=== PATIENT | female | born 1975 | race Caucasian/White ===

== ENCOUNTER 2020-01-05 10:55 | Day surgery (SDC) | payer SELFPAY ==
[2020-01-05] MEDS ORDERED: Ropivacaine 0.5% 5 MG/ML 30 ML SDV INJECT ONE (13:00)
[2020-01-05] MEDS ORDERED: Betamethasone Acetate/Betamethasone Sod Phosphate 30 MG/5 ML MDV EPIDUR ONE (13:00)
[2020-01-05] MEDS ORDERED: Lidocaine 2% 5 ML SDV INJECT ONE (13:00)
[2020-01-05] MEDS ORDERED: Iopamidol 200-M 10 ML vial ITHECAL ONE (13:00)
--- NOTE | 2020-01-05 17:43 | OR ---
SURGEON: Amanda Hinojosa D.O. DATE OF PROCEDURE: 01/05/2020 PRIMARY SURGEON: Amanda Hinojosa DO ASSISTANTS: OR staff present: 1. Renny Wang RT. 2. Lavonne Dudley RN. 3. Renny Mondragon RN. WOUND CLASS: I. PREOPERATIVE DIAGNOSES: 1. Failed back surgery syndrome. 2. Right lower extremity radiculopathy. POSTOPERATIVE DIAGNOSES: 1. Failed back surgery syndrome. 2. Right lower extremity radiculopathy. PROCEDURES PERFORMED: 1. Right transforaminal epidural steroid injection at S1. 2. Fluoroscopic guidance for needle placement. 3. Local with oral Valium for sedation. SCREENING QUESTIONS: The patient answered "no" to all of the following questions: 1. Are you allergic to iodine, Betadine or latex? 2. Do you have a bleeding disorder? 3. Do you have any joint replacements, heart valve replacements, or a pacemaker? 4. Are you allergic to anti-inflammatories or blood thinners? 5. Do you have any current local or systemic infections? DESCRIPTION OF PROCEDURE: The patient had the procedure thoroughly explained including risks, benefits and alternatives. Consent was signed in my clinic indicating understanding and willingness to proceed. The patient presented to [facility] [place] where the patient was escorted to the dressing room to disrobe and change into a hospital gown. Preoperative vital signs were taken and stable. The patient reported that Valium was taken prior to the procedure. The patient was brought to the procedure room and placed in the prone position on the table. A pillow was placed under the abdomen in order to flatten the lumbar lordosis. The back was prepped with ChloraPrep and sterilely draped. All personnel in the operating room were dressed in appropriate attire including surgical scrubs, head and shoe covers. This was to ensure sterility while in the treatment room. During the time fluoroscopy was in use, all personnel in the operating room wore lead vegas with thyroid collars. Sterile technique was used during the procedure. The fluoroscope was placed for the right S1 transforaminal epidural steroid injection. There was no sign of infection at the skin site for needle insertion. The skin was anesthetized with 2% lidocaine with a 27 gauge 1-1/2 inch needle. Then, a 22 gauge 3-1/2 inch spinal needle, advanced to the right S1. Under direct fluoroscopic guidance needle position was verified in three views; AP, oblique and lateral, with 0.2 cubic centimeters increments of Isovue- 200 dye. No intravascular flow pattern was observed under live fluoroscopy. Then 12 milligrams of Celestone was slowly injected after negative aspiration of heme, cerebrospinal fluid and no paresthesias were noted. The needle was cleared prior to removal from the skin. No adverse reactions were noted. The patient was brought to the recovery room awake and in good condition by my staff. The patient was monitored and discharge instructions were given after a brief stay in the recovery area. Both oral and written discharge and follow up instructions were given. The patient will follow up in the clinic in 3-4 weeks post procedure to evaluate the efficacy. The patient verbalized understanding including understanding of those signs and symptoms that would require emergency care and knows how to contact the office if there are any problems or questions in the meantime. PREOPERATIVE PAIN: 9/10. POSTOPERATIVE PAIN: 4/10. FOLLOWUP: In the Pain Clinic in 3 weeks. CHEMA / MAYANK /[id number] MTDDann
== END 2020-01-05 13:40 | disposition home or self-care (01) ==
LOC: MW.SDS 10:55
PROVIDERS: ATTEND Anesthesiology
DX: M96.1 Postlaminectomy syndrome, not elsewhere classified (principal); G89.29 Other chronic pain; F41.9 Anxiety disorder, unspecified; M51.16 Intervertebral disc disorders with radiculopathy, lumbar region; M47.26 Other spondylosis with radiculopathy, lumbar region; M79.18 Myalgia, other site; Z88.1 Allergy status to other antibiotic agents; Z88.8 Allergy status to other drugs, medicaments and biological substances; Z79.899 Other long term (current) drug therapy
CPT/HCPCS: 64483; J0702

== ENCOUNTER 2020-05-17 17:04 | Emergency (ER) | payer OTHER ==
--- NOTE | 2020-05-17 18:04 | EDM.PDOC ---
ED HPI GENERAL MEDICAL PROBLEM - General Chief Complaint: General Stated Complaint: BACK PAIN Time Seen by Provider: 05/17/20 17:04 Source of Information: Reports: Patient History Limitations: Reports: No Limitations - History of Present Illness INITIAL COMMENTS - FREE TEXT/NARRATIVE: HISTORY AND PHYSICAL: History of present illness: Is a 45-year-old female who presents to the emergency room today with concern of low back and right hip pain that has been ongoing for 2 weeks. Patient states she has a history of prior bulging disc and her symptoms today feel similar to when she had a bulging disc in the past. Patient states that she did have surgery on her bulging disc in the past. Patient states that she has been having back pain off and on since then. Patient states 2 weeks ago she began feeling the back pain come on again and so she has been going to the chiropractor routinely getting her hip popped back into place. Patient denies any direct trauma or injury to her low back. Patient states she is currently trying to get and is a few days late on her menstrual cycle. Patient denies any vaginal bleeding. Patient denies any loss or retention of bowel bladder function or saddle anesthesia. Patient denies fever, chills, chest pain, shortness of breath, or cough. Denies headache, neck stiff ness, change in vision, syncope, or near syncope. Denies nausea, vomiting, abdominal pain, diarrhea, constipation, or dysuria. Has not noted any blood in urine or stool. Patient has been eating and drinking appropriately. Review of systems: As per history of present illness and below otherwise all systems reviewed and negative. Past medical history: As per history of present illness and as reviewed below otherwise noncontributory. Surgical history: As per history of present illness and as reviewed below otherwise noncontributory. Social history: See social history for further information Family history: As per history of present illness and as reviewed below otherwise noncontributory. Physical exam: General: Patient is alert, oriented, and in no acute distress. Patient laying comfortably on exam table, on her left. Patient does have pain with laying flat on her back. Patient did have pain with ambulation and did require some assistance. HEENT: Atraumatic, normocephalic, pupils equal and reactive bilaterally, negative for conjunctival pallor or scleral icterus, mucous membranes moist, TMs normal bilaterally, throat clear, neck supple, nontender, trachea midline. No drooling or trismus noted. No meningeal signs. No hot potato voice noted. Lungs: Clear to auscultation, breath sounds equal bilaterally, chest nontender. Heart: S1S2, regular rate and rhythm without overt murmur Abdomen: Soft, nondistended, nontender. Negative for masses or hepatosplenomegaly. Negative for costovertebral tenderness. Pelvis: Stable nontender. Genitourinary: Deferred. Rectal: Deferred. Skin: Intact, warm, dry. No lesions or rashes noted. Extremities: No obvious deformity of the complete spine. No step-offs, crepitus, or point tenderness to palpation of the complete spine. Patient does have pain of the right sided paraspinous muscle of the lumbar spine and over the SI joint of the right. Patient has limited range of motion of the lumbar spine due to pain. Patient does have full ROM of her lower extremities without deficit. Patellar reflexes intact bilaterally. Otherwise, atraumatic, negative for cords or calf pain. Neurovascular unremarkable. Neuro: Awake, alert, oriented. Cranial nerves II through XII unremarkable. Cerebellum unremarkable. Motor and sensory unremarkable throughout. Exam nonfocal. Notes: Lumbar CT was offered to patient but she declines at this time. Patient states that she understands she requires an MRI for full assessment of her low back, as she has had surgery on her spine before. Patient states she will forego the lumbar CT and follow-up with her primary care. Patient states she would like m edication management of her pain and declines any other diagnostic testing. Patient does not want to wait for reassessment of symptoms following therapeutics requesting discharge from the ED. Vitals remain stable throughout stay in ED. Patient was able to ambulate without difficulty on discharge from the ED. Signs and symptoms that would prompt return to the ED thoroughly discussed with patient. Discussed importance for follow-up with primary care provider. Voices understanding and is agreeable to plan of care. Denies any further questions or concerns at this time. Diagnostics: serum hcg quant/qual (Patient declines imaging of her low back/hip or UA) Therapeutics: Toradol, Norflex Prescription: Medrol dose pack, Diclofenac, Tramadol (#12) Impression: Low back pain Plan: 1. The medication you received today does cause drowsiness, so do not drive for the remaining day. 2. When resting please lay on a flat firm surface. Limit your mobility to prevent muscle stiffness. Get up to ambulate/move around/gentle stretching multiple times throughout the day. May alternate heat and ice to painful areas. 3. Tylenol as needed for back pain. Otherwise, take the prescribed tramadol and diclofenac as directed. Diclofenac as an anti-inflammatory medication so do not take any additional NSAIDs with this medication, such as naproxen, ibuprofen, or Aleve. Tramadol, this medication may cause drowsiness, so do not take it while driving or needing to be functioning outside of the home. 4. Follow-up with your primary care provider as discussed. Return to the ED as needed and as discussed. Definitive disposition and diagnosis as appropriate pending reevaluation and review of above. back Pain Score (Numeric/FACES): 10 - Related Data Allergies Allergy/AdvReac Type Severity Reaction Status Date / Time azithromycin Allergy Hives Verified 05/17/20 17:22 divalproex sodium Allergy Hives Verified 05/17/20 17:22 [From Depakote] Home Meds: Home Meds Diclofenac Sodium [Voltaren] 75 mg PO BIDMEALS PRN #15 tab.cr 05/17/20 [Rx] methylPREDNISolone [Medrol] 4 mg PO ASDIRECTED #1 dosepk 05/17/20 [Rx] traMADol [Ultram] 50 mg PO Q6H PRN #12 tab 05/17/20 [Rx] Past Medical History Musculoskeletal History: Reports: Back Pain, Chronic Psychiatric History: Reports: Anxiety, PTSD - Infectious Disease History Infectious Disease History: Reports: Chicken Pox, Measles Social & Family History - Family History Family Medical History: No Pertinent Family History - Recreational Drug Use Recreational Drug Type: Reports: Marijuana/Hashish ED ROS GENERAL - Review of Systems Review Of Systems: Comprehensive ROS is negative, except as noted in HPI. ED EXAM, GENERAL - Physical Exam Exam: See Below (see dictation) Course - Vital Signs Last Recorded V/S: Last Vital Signs Temp 96 F L 05/17/20 17:19 Pulse 87 05/17/20 17:19 Resp 20 05/17/20 17:19 BP 122/60 05/17/20 17:19 Pulse Ox 100 05/17/20 17:19 - Orders/Labs/Meds Labs: Laboratory Tests 05/17/20 05/17/20 Range/Units 17:52 17:52 HCG, Qual NEGATIVE (NEG) HCG, Quant < 1.0 mIU/mL Meds: Medications Discontinued Medications Generic Name Dose Route Start Last Admin Trade Name Evangelista PRN Reason Stop Dose Admin Ketorolac Tromethamine 60 mg 05/17/20 18:37 05/17/20 18:43 Toradol IM 05/17/20 18:38 60 mg ONETIME ONE Administration Orphenadrine Citrate 60 mg 05/17/20 18:37 05/17/20 18:43 Norflex IM 05/17/20 18:38 60 mg ONETIME ONE Administration Departure - Departure Time of Disposition: 18:38 Disposition: Home, Self-Care 01 Clinical Impression: Low back pain Qualifiers: Chronicity: acute Back pain laterality: unspecified Sciatica presence: with sciatica Sciatica laterality: sciatica of right side Qualified Code(s): M54.41 - Lumbago with sciatica, right side - Discharge Information Prescriptions: methylPREDNISolone [Medrol] 4 mg PO ASDIRECTED #1 dosepk traMADol [Ultram] 50 mg PO Q6H PRN #12 tab PRN Reason: Pain (Severe 7-10) Diclofenac Sodium [Voltaren] 75 mg PO BIDMEALS PRN #15 tab.cr PRN Reason: Pain Referrals: Mich Corley MD [Primary Care Provider] - Forms: ED Department Discharge Additional Instructions: The following information is given to patients seen in the emergency department who are being discharged to home. This information is to outline your options for follow-up care. We provide all patients seen in our emergency department with a follow-up referral. The need for follow-up, as well as the timing and circumstances, are variable depending upon the specifics of your emergency department visit. If you don't have a primary care physician on staff, we will provide you with a referral. We always advise you to contact your personal physician following an emergency department visit to inform them of the circumstance of the visit and for follow-up with them and/or the need for any referrals to a consulting specialist. The emergency department will also refer you to a specialist when appropriate. This referral assures that you have the opportunity for follow-up care with a specialist. All of these measure are taken in an effort to provide you with optimal care, which includes your follow-up. Under all circumstances we always encourage you to contact your private physician who remains a resource for coordinating your care. When calling for follow-up care, please make the office aware that this follow-up is from your recent emergency room visit. If for any reason you are refused follow-up, please contact the [facility] at and asked to speak to the emergency department charge nurse. [facility] [address] [place] [id number] [facility] [address] [place] [id number] 1. The medication you received today does cause drowsiness, so do not drive for the remaining day. 2. When resting please lay on a flat firm surface. Limit your mobility to prevent muscle stiffness. Get up to ambulate/move around/gentle stretching multiple times throughout the day. May alternate heat and ice to painful areas. 3. Tylenol as needed for back pain. Otherwise, take the prescribed tramadol and diclofenac as directed. Diclofenac as an anti-inflammatory medication so do not take any additional NSAIDs with this medication, such as naproxen, ibuprofen, or Aleve. Tramadol, this medication may cause drowsiness, so do not take it while driving or needing to be functioning outside of the home. 4. Follow-up with your primary care provider as discussed. Return to the ED as needed and as discussed. Sepsis Event Note (ED) - Evaluation Sepsis Screening Result: No Definite Risk - Focused Exam Vital Signs: Vital Signs Temp Pulse Resp BP Pulse Ox 05/17/20 17:19 96 F L 87 20 122/60 100
[2020-05-17] MEDS ORDERED: Orphenadrine 60 MG/2 ML Inj IM ONE (18:37)
[2020-05-17] MEDS ORDERED: Ketorolac 60 MG/2 ML SDV IM ONE (18:37)
== END 2020-05-17 19:35 | disposition home or self-care (01) ==
LOC: MW.ED 17:04
DX: M54.41 Lumbago with sciatica, right side (principal); M25.551 Pain in right hip; Z88.1 Allergy status to other antibiotic agents; Z88.8 Allergy status to other drugs, medicaments and biological substances
CPT/HCPCS: 36415; 84702; 84703; 96372; 99283; J1885; J2360

== ENCOUNTER 2020-06-28 10:57 | Day surgery (SDC) | payer OTHER ==
--- NOTE | 2020-07-20 09:40 | OR ---
SURGEON: Amanda Hinojosa D.O. DATE OF PROCEDURE: 06/28/2020 PRIMARY SURGEON: Amanda Hinojosa D.O. STOCK SPECULATOR: OR staff present: 1. Anabelle Garcia RN. 2. Lavonne Dudley RN. 3. Donn Garcia RT. WOUND CLASS: I. PREOPERATIVE DIAGNOSES: Lumbar degenerative disk disease, L5-S1; right L5-S1 radiculopathy. POSTOPERATIVE DIAGNOSES: Lumbar degenerative disk disease, L5-S1; right L5-S1 radiculopathy. PROCEDURE PERFORMED: Right S1 transforaminal epidural steroid injection, fluoroscopic guidance for needle placement, local with oral Valium for sedation. PREOPERATIVE PAIN: 5+/10. POSTOPERATIVE PAIN: 0/10. FOLLOWUP: In the Pain Clinic in 3 weeks. SCREENING QUESTIONS: The patient answered "no" to all of the following questions: 1. Are you allergic to iodine, Betadine or latex? 2. Do you have a bleeding disorder? 3. Do you have any joint replacements, heart valve replacements, or a pacemaker? 4. Are you allergic to anti-inflammatories or blood thinners? 5. Do you have any current local or systemic infections? DESCRIPTION OF PROCEDURE: The patient had the procedure thoroughly explained including risks, benefits and alternatives. Consent was signed in my clinic indicating understanding and willingness to proceed. The patient presented to [facility] [place] where the patient was escorted to the dressing room to disrobe and change into a hospital gown. Preoperative vital signs were taken and stable. The patient reported that Valium was taken prior to the procedure. The patient was brought to the procedure room and placed in the prone position on the table. A pillow was placed under the abdomen in order to flatten the lumbar lordosis. The back was prepped with ChloraPrep and sterilely draped. All personnel in the operating room were dressed in appropriate attire including surgical scrubs, head and shoe covers. This was to ensure sterility while in the treatment room. During the time fluoroscopy was in use, all personnel in the operating room wore lead vegas with thyroid collars. Sterile technique was used during the procedure. The fluoroscope was placed for the right S1 transforaminal epidural steroid injection. There was no sign of infection at the skin site for needle insertion. The skin was anesthetized with 2% lidocaine with a 27 gauge 1-1/2 inch needle. Then, a 22 gauge 3-1/2 inch spinal needle, advanced to the right S1. Under direct fluoroscopic guidance needle position was verified in three views; AP, oblique and lateral, with 0.2 cubic centimeters increments of Isovue- 200 dye. No intravascular flow pattern was observed under live fluoroscopy. Then 12 milligrams of Celestone and local was slowly injected after negative aspiration of heme, cerebrospinal fluid and no paresthesias were noted. The needle was cleared prior to removal from the skin. No adverse reactions were noted. The patient was brought to the recovery room awake and in good condition by my staff. The patient was monitored and discharge instructions were given after a brief stay in the recovery area. Both oral and written discharge and follow up instructions were given. The patient will follow up in the clinic in 3-4 weeks post procedure to evaluate the efficacy. The patient verbalized understanding including understanding of those signs and symptoms that would require emergency care and knows how to contact the office if there are any problems or questions in the meantime. CHEMA / MAYANK /[id number] PADDY
== END 2020-06-28 13:22 ==
LOC: MW.SDS 10:57
PROVIDERS: ATTEND Anesthesiology
DX: G89.29 Other chronic pain (principal); M51.17 Intervertebral disc disorders with radiculopathy, lumbosacral region; M47.26 Other spondylosis with radiculopathy, lumbar region; M48.02 Spinal stenosis, cervical region; M50.121 Cervical disc disorder at C4-C5 level with radiculopathy; M96.1 Postlaminectomy syndrome, not elsewhere classified; Z88.1 Allergy status to other antibiotic agents; Z88.8 Allergy status to other drugs, medicaments and biological substances; Z98.890 Other specified postprocedural states

== ENCOUNTER 2020-09-06 16:34 | Emergency (ER) | payer OTHER ==
[2020-09-06] MEDS ORDERED: Ibuprofen 600 MG Tab PO ONE (16:51)
[2020-09-06] MEDS ORDERED: Diphtheria,Pertussis(Acell),Tetanus Vaccine 0.5 ML Syringe IM ONE (16:51)
--- NOTE | 2020-09-06 17:31 | EDM.PDOC ---
ED HPI GENERAL MEDICAL PROBLEM - General Chief Complaint: Skin Complaint Stated Complaint: RT DOMINGUEZ LACERATION Time Seen by Provider: 09/06/20 16:47 - History of Present Illness INITIAL COMMENTS - FREE TEXT/NARRATIVE: HISTORY AND PHYSICAL: History of present illness: This is a 45-year-old female with no significant past medical history who presents ER today secondary to a laceration to her left anterior tibial region. Patient reports that she was walking her mother's dog when she got tripped up and fell and hit her anterior tibial region on a brick step resulting in a laceration. Patient's tetanus status is not up-to-date. Patient denies any other trauma to her upper or lower extremities other than the isolated injury to her left leg. Patient denies any head trauma, LOC, dizziness. Patient reports she is not on any anticoagulation therapy. Review of systems: As per history of present illness and below otherwise all systems reviewed and negative. Past medical history: As per history of present illness and as reviewed below otherwise noncontributory. Surgical history: As per history of present illness and as reviewed below otherwise noncontributory. Social history: No reported history of drug abuse. Family history: As per history of present illness and as reviewed below otherwise noncontributory. Physical exam: This patient was seen and evaluated during the 2019 SARS-CoV-2 novel coronavirus pandemic period. Community viral transmission is ongoing at time of this encounter and the emergency department is operating under pandemic response procedures. Constitutional: Patient is oriented to person, place, and time. Appears well- developed and well-nourished. No distress. HEENT: Moist mucous membranes Head: Normocephalic and atraumatic Eyes: Right eye exhibits no discharge. Left eye exhibits no discharge. No scleral icterus Neck: Normal range of motion. No tracheal deviation present. Cardiovascular: Normal rate and regular rhythm. Pulmonary: Effort normal, no respiratory distress. Abdominal: No distention Musculoskeletal: Normal range of motion Neurologic: Alert and oriented to person, place and time. Skin: [place], warm and dry. Psychiatric: Normal mood and affect. Behavior is normal. Judgment and thought content normal. Nursing note and vital signs have been reviewed Patient's ER physical exam is significant for a 3 cm laceration to her left pretibial region. Patient is neurovascularly intact. Patient has no C-spine T-spine or L-spine tenderness to palpation. Patient has no left upper or right upper quadrant tenderness to palpation. Patient has no c repitus to palpation to the anterior chest wall. Patient is neurologically intact. Patient does not present with any signs or or symptoms that would be consistent with acute intracranial, intra-abdominal, intrathoracic, or long bone injury. All long bones have been palpated and range of motion been performed and there is no evidence of any acute pathology. Diagnostics: X-ray of tib-fib reveals no acute fracture or foreign body. As interpreted by Dr. [employer]: Wound sutured in the ED. Please see suture note Td 0.5 IM Motrin 600 mg p.o. Assessment and plan: This is a 45-year-old female who presents ER today secondary to a laceration to her left anterior tibial region. Wound was irrigated with 1 L of NSS after anesthetized with 3 cc of 1% lidocaine. 5x4.0 simple interrupted Ethilon sutures were placed without complications. I have instructed patient that she will need a wound check in 2 days and she can have sutures removed in 10 days. No antibiotics indicated at this time. Reassessment at the time of disposition demonstrates that the patient is in no acute distress. The patient has remained stable throughout the entire ED visit and is without objective evidence for acute process requiring urgent intervention or hospitalization. The patient is stable for discharge, counseling is provided as documented above, discussed symptomatic treatment and specific c onditions for return. I have spoken with the patient/caregiver and discussed todays findings, in addition to providing specific details for the plan of care. Questions are answered and there is agreement with the plan. Definitive disposition and diagnosis as appropriate pending reevaluation and review of above. right dominguez Pain Score (Numeric/FACES): 5 - Related Data Allergies Allergy/AdvReac Type Severity Reaction Status Date / Time azithromycin Allergy Hives Verified 09/06/20 16:46 divalproex sodium Allergy Hives Verified 09/06/20 16:46 [From Depakote] methocarbamol [From Robaxin] Allergy Fainting Verified 09/06/20 16:46 Home Meds: Home Meds DULoxetine [Cymbalta] 09/06/20 [History] Diclofenac Submicronized [Diclofenac] 09/06/20 [History] Naltrexone 09/06/20 [History] Pregabalin [Lyrica] 09/06/20 [History] Past Medical History Musculoskeletal History: Reports: Back Pain, Chronic Psychiatric History: Reports: Anxiety, PTSD - Infectious Disease History Infectious Disease History: Reports: Chicken Pox, Measles - Past Surgical History Musculoskeletal Surgical History: Reports: Other (See Below) Other Musculoskeletal Surgeries/Procedures:: back surgery Social & Family History - Family History Family Medical History: No Pertinent Family History - Tobacco Use Tobacco Use Status *Q: Current Every Day Tobacco User Years of Tobacco use: 5 Packs/Tins Daily: 1 - Recreational Drug Use Recreational Drug Use: No ED ROS GENERAL - Review of Systems Review Of Systems: See Below ED EXAM, SKIN/RASH Exam: See Below Course - Vital Signs Last Recorded V/S: Last Vital Signs Temp 97.8 F 09/06/20 16:50 Pulse 86 09/06/20 16:50 Resp 18 09/06/20 16:50 BP 126/77 09/06/20 16:50 Pulse Ox 99 09/06/20 16:50 - Orders/Labs/Meds Orders: Active Orders 24 hr Category Date Time Status Vaccines to be Administered [RC] PER UNIT ROUTINE Care 09/06/20 16:51 Active Tibia Fibula Rt [CR] Stat Exams 09/06/20 16:51 Taken Meds: Medications Discontinued Medications Generic Name Dose Route Start Last Admin Trade Name Freq PRN Reason Stop Dose Admin Diphtheria/Tetanus/Acell Pertussis 0.5 ml 09/06/20 16:51 09/06/20 17:03 Diphtheria,Pertussis(Acell),Tetanus Vaccine 0.5 Ml Syringe IM 09/06/20 16:52 0.5 ml .ONCE ONE Administration Ibuprofen 600 mg 09/06/20 16:51 09/06/20 17:02 Ibuprofen 600 Mg Tab PO 09/06/20 16:52 600 mg ONETIME ONE Administration Lidocaine HCl 5 ml 09/06/20 16:51 09/06/20 17:03 Lidocaine 1% 5 Ml Sdv INJECT 09/06/20 16:52 5 ml ONETIME ONE Administration Departure - Departure Time of Disposition: 17:38 Disposition: Home, Self-Care 01 Condition: Good Clinical Impression: Laceration of leg Qualifiers: Encounter type: initial encounter Laterality: left Qualified Code(s): S81.812A - Laceration without foreign body, left lower leg, initial encounter - Discharge Information Instructions: Laceration Care, Adult Referrals: Mich Corley MD [Primary Care Provider] - Additional Instructions: You were seen and evaluated the ER today secondary to a laceration to your leg. 5 sutures have been placed. You will need a wound check in 2 days by your doctor to make sure there is no signs of any infection. Sutures can be removed in 10 days. Please keep the wound clean and dry. You can wash it with mild soap and water. The following information is given to patients seen in the emergency department who are being discharged to home. This information is to outline your options for follow-up care. We provide all patients seen in our emergency department with a follow-up referral. The need for follow-up, as well as the timing and circumstances, are variable depending upon the specifics of your emergency department visit. If you don't have a primary care physician on staff, we will provide you with a referral. We always advise you to contact your personal physician following an emergency department visit to inform them of the circumstance of the visit and for follow-up with them and/or the need for any referrals to a consulting specialist. The emergency department will also refer you to a specialist when appropriate. This referral assures that you have the opportunity for follow-up care with a specialist. All of these measure are taken in an effort to provide you with optimal care, which includes your follow-up. Under all circumstances we always encourage you to contact your private physician who remains a resource for coordinating your care. When calling for follow-up care, please make the office aware that this follow-up is from your recent emergency room visit. If for any reason you are refused follow-up, please contact the [facility] Emergency Department at and asked to speak to the emergency department charge nurse. [facility] - Primary Care [address] [place] [id number] [address] Sepsis Event Note (ED) - Evaluation Sepsis Screening Result: No Definite Risk - Focused Exam Vital Signs: Vital Signs Temp Pulse Resp BP Pulse Ox 09/06/20 16:50 97.8 F 86 18 126/77 99 - My Orders Last 24 Hours: My Active Orders 09/06/20 16:51 Vaccines to be Administered [RC] PER UNIT ROUTINE Tibia Fibula Rt [CR] Stat - Assessment/Plan Last 24 Hours: My Active Orders 09/06/20 16:51 Vaccines to be Administered [RC] PER UNIT ROUTINE Tibia Fibula Rt [CR] Stat
[2020-09-06] MEDS ORDERED: Bacitracin Oint 1 GM U/D Packet TOP ONE (17:43)
--- NOTE | 2020-09-06 18:31 | CR ---
Indication: Trauma to the distal tibia. Technique: Two views of the right lower leg. Comparison: None Findings: No acute fracture or subluxation is identified. The joint spaces are well maintained. Impression: No acute fracture. Dictated by Taylor Beckham MD @ 09/06/2020 6:29:[address] Taylor Beckham @ Sep 06 2020 6:29PM
== END 2020-09-06 17:52 | disposition home or self-care (01) ==
LOC: MW.ED 16:34
DX: S81.812A Laceration without foreign body, left lower leg, initial encounter (principal); Z23 Encounter for immunization; Z72.0 Tobacco use; Z88.1 Allergy status to other antibiotic agents; Z88.5 Allergy status to narcotic agent; W18.09XA Striking against other object with subsequent fall, initial encounter; W26.8XXA Contact with other sharp object(s), not elsewhere classified, initial encounter
CPT/HCPCS: 12002; 73590; 90471; 90715; 99283; A9270

== ENCOUNTER 2020-09-14 14:15 | Emergency (ER) | payer OTHER ==
[2020-09-14] MEDS ORDERED: Cephalexin 500 MG Cap PO ONE (14:56)
--- NOTE | 2020-09-14 14:58 | EDM.PDOC ---
ED HPI GENERAL MEDICAL PROBLEM - General Chief Complaint: Skin Complaint Stated Complaint: REMOVE STITCHES Time Seen by Provider: 09/14/20 14:42 - History of Present Illness INITIAL COMMENTS - FREE TEXT/NARRATIVE: CHIEF COMPLAINT(S): Wound infection HISTORY OF PRESENT ILLNESS: This is a 45-year-old woman with a recent laceration to her right dominguez status post suture repair who comes to the emergency department with a chief complaint of wound infection. The patient states that it has been approximately 1 week since her stitches were placed. She states that over the last couple days she has noticed some redness that has been surrounding the area where it was stitched. She states that there was some yellow/white drainage coming from the bottom part of the incision. She states that it is mildly tender. She rates her pain as 6 out of 10 without any radiation. She has not yet taken any pain medication. Aggravating factors include touching the area. Relieving factors include not touching the area. She denies any fever, chills, distal numbness, tingling, or weakness. She denies any inability to bear weight. She denies any other symptoms. REVIEW OF SYSTEMS: Constitutional: Denies fever, chills. Eyes: Denies eye pain Ears, Nose, Mouth, & Throat: Denies earache Cardiovascular: Denies chest pain Respiratory: Denies shortness of breath Gastrointestinal: Denies Nausea, vomiting, diarrhea, hematochezia. Genitourinary: Denies hematuria Skin: Positive for redness and possible pus drainage of the right dominguez wound MSK: Denies joint pain Neurological: Denies blurred vision Psychiatric: Denies depression PAST MEDICAL HISTORY: As per history of present illness and as reviewed below otherwise noncontributory. SURGICAL HISTORY: As per history of present illness and as reviewed below otherwise noncontributory. SOCIAL HISTORY: As per history of present illness and as reviewed below otherwise noncontributory. FAMILY HISTORY: As per history of present illness and as reviewed below otherwise noncontributory. EXAMINATION OF ORGAN SYSTEMS/BODY AREAS: Constitutional: Blood pressure was 130/81, heart rate 74, respiratory rate 16 with an oxygen saturation of 99% on room air. Temperature 36.6 General: Overall well-appearing woman who is in no acute distress Psychiatric: Appropriate mood and affect. Eyes: No scleral icterus or conjunctival erythema ENMT: Moist mucous membranes. No pharyngeal erythema Cardiovascular: Regular, rate, and rhythm. No gallops, murmurs, or rubs. Bilateral upper extremity pulses symmetric and intact. No peripheral edema. No JVD. Respiratory: Lungs clear to auscultation bilaterally. No wheezes, rales, or rhonchi. Gastrointestinal: Soft, non-tender, non-distended. Normoactive bowel sounds Genitourinary: No suprapubic tenderness Musculoskeletal: Normal range of motion. Skin: There is an approximately 3 to 4 cm wound that was repaired on the right anterior dominguez. There is some surrounding erythema of this wound. No purulence, fluctuance or induration. The inferior portion of the wound does appear to be slightly opened. Mildly tender to palpation. No crepitus. Neurological: Alert, GCS 15 distal sensation is intact MEDICAL DECISION MAKING AND COURSE IN THE ED WITH INTERPRETATION/REVIEW OF DIAGNOSTIC STUDIES: This is a 45-year-old man with a recent laceration to her right anterior dominguez status post suture repair who comes to the emergency depa rtment with what appears to be a wound infection and needing her stitches removed. At this time given the concern for wound infection and given that it has been 7 days we will remove the stitches. I did remove 5 stitches. Given the patient is afebrile and does not appear to be toxic we did place a marker around the erythema. I discussed with the patient had like to start her on Keflex 4 times a day for the next 7 days. She was given strict return precautions. She was amenable discharge at this time and had no further questions DISPOSITION: The patient was discharged home in stable condition. The patient will follow up with primary care physician in 3 to 5 days CONDITION: Fair PROCEDURES: Stitch removal FINAL IMPRESSION(S)/DIAGNOSES: 1. Acute wound cellulitis Edison Oliveros M.D. Right Lower Leg Pain Score (Numeric/FACES): 6 - Related Data Allergies Allergy/AdvReac Type Severity Reaction Status Date / Time azithromycin Allergy Hives Verified 09/14/20 14:46 divalproex sodium Allergy Hives Verified 09/14/20 14:46 [From Depakote] methocarbamol [From Robaxin] Allergy Fainting Verified 09/14/20 14:46 Home Meds: Home Meds DULoxetine [Cymbalta] 20 mg PO DAILY 09/06/20 [History] Diclofenac Submicronized [Diclofenac] 35 mg PO DAILY 09/06/20 [History] Naltrexone 50 mg PO ASDIRECTED 09/06/20 [History] Pregabalin [Lyrica] 25 mg PO DAILY 09/06/20 [History] cephALEXin [Keflex] 500 mg PO Q6H #20 cap 09/14/20 [Rx] Past Medical History - Past Health History Medical/Surgical History: Denies Medical/Surgical History Musculoskeletal History: Reports: Back Pain, Chronic Psychiatric History: Reports: Anxiety, PTSD - Infectious Disease History Infectious Disease History: Reports: Chicken Pox, Measles - Past Surgical History Musculoskeletal Surgical History: Reports: Other (See Below) Other Musculoskeletal Surgeries/Procedures:: back surgery Social & Family History - Family History Family Medical History: No Pertinent Family History - Tobacco Use Tobacco Use Status *Q: Current Every Day Tobacco User Years of Tobacco use: 20 Packs/Tins Daily: 0.5 - Caffeine Use Caffeine Use: Reports: Coffee - Recreational Drug Use Recreational Drug Use: Yes Drug Use in Last 12 Months: Yes Recreational Drug Type: Reports: Marijuana/Hashish ED ROS GENERAL - Review of Systems Review Of Systems: See Below ED EXAM, SKIN/RASH Exam: See Below Course - Vital Signs Last Recorded V/S: Last Vital Signs Temp 36.6 C 09/14/20 14:47 Pulse 74 09/14/20 14:47 Resp 16 09/14/20 14:47 BP 130/81 09/14/20 14:47 Pulse Ox 99 09/14/20 14:47 - Orders/Labs/Meds Meds: Medications Discontinued Medications Generic Name Dose Route Start Last Admin Trade Name Evangelista PRN Reason Stop Dose Admin Cephalexin 500 mg 09/14/20 14:56 09/14/20 15:02 Cephalexin 500 Mg Cap PO 09/14/20 14:57 500 mg ONETIME ONE Administration Departure - Departure Time of Disposition: 14:57 Disposition: Home, Self-Care 01 Condition: Fair Clinical Impression: Cellulitis - Discharge Information *PRESCRIPTION DRUG MONITORING PROGRAM REVIEWED*: No *COPY OF PRESCRIPTION DRUG MONITORING REPORT IN PATIENT RENU: No Prescriptions: cephALEXin [Keflex] 500 mg PO Q6H #20 cap Instructions: Cellulitis, Adult, [id number] Referrals: Mich Corley MD [Primary Care Provider] - Forms: ED Department Discharge Additional Instructions: You evaluate today on an emergent basis. At this time we did remove your stitches. There does appear to be a surrounding skin infection. At this time we did start you on Keflex which you need to take 4 times a day. Please keep the area open to air and clean with soap and water. We did place a marker of where the redness was. If within 1 day the redness extends beyond that border please return to the emergency department or your primary care physician for switch of antibiotics. As discussed we started with Keflex, the next step if it does not improve would be doxycycline or Bactrim. Please follow-up with your primary care physician within 5 days. [facility] - Primary Care [address] [place] [address] [facility] [address] [place] [address] The patient is informed of any results of their evaluation and diagnostic workup and all questions are answered. They are given discharge instructions and return precautions. The patient is stable for discharge. The patient states they understand and agree with the plan and that they will return if their symptoms get worse or if they have any new concerns. The following information is given to patients seen in the emergency department who are being discharged to home. This information is to outline your options fo r follow-up care. We provide all patients seen in our emergency department with a follow-up referral. The need for follow-up, as well as the timing and circumstances, are variable depending upon the specifics of your emergency department visit. If you don't have a primary care physician on staff, we will provide you with a referral. We always advise you to contact your personal physician following an emergency department visit to inform them of the circumstance of the visit and for follow-up with them and/or the need for any referrals to a consulting specialist. The emergency department will also refer you to a specialist when appropriate. This referral assures that you have the opportunity for follow-up care with a specialist. All of these measure are taken in an effort to provide you with optimal care, which includes your follow-up. Under all circumstances we always encourage you to contact your private physician who remains a resource for coordinating your care. When calling for follow-up care, please make the office aware that this follow-up is from your recent emergency room visit. If for any reason you are refused follow-up, please contact the [facility] Emergency Department at and asked to speak to the emergency department charge nurse. Sepsis Event Note (ED) - Evaluation Sepsis Screening Result: No Definite Risk - Focused Exam Vital Signs: Vital Signs Temp Pulse Resp BP Pulse Ox 09/14/20 14:47 36.6 C 74 16 130/81 99
== END 2020-09-14 15:03 | disposition home or self-care (01) ==
LOC: MW.ED 14:15
DX: L03.115 Cellulitis of right lower limb (principal); Z88.1 Allergy status to other antibiotic agents; Z88.8 Allergy status to other drugs, medicaments and biological substances; Z79.899 Other long term (current) drug therapy; Z72.0 Tobacco use
CPT/HCPCS: 99282; A9270; 99283

== ENCOUNTER 2020-09-30 17:44 | Emergency (ER) | payer OTHER ==
--- NOTE | 2020-09-30 19:30 | EDM.PDOC ---
ED HPI GENERAL MEDICAL PROBLEM - General Chief Complaint: Lower Extremity Injury/Pain Stated Complaint: RT LEG LACERATION, POSSIBLY INFECTED Time Seen by Provider: 09/30/20 19:14 Source of Information: Reports: Patient History Limitations: Reports: No Limitations - History of Present Illness INITIAL COMMENTS - FREE TEXT/NARRATIVE: Patient is a 45-year-old female who presents today for a wound to her right tibia. Patient states she suffered a wound over a month ago. She has been on antibiotics twice but states the area is not really healing well. Patient has some redness around the area but no drainage and is not warm to touch. Patient has NSTEMI symptoms of fever chills nausea vomiting with complaints. Right Leg Pain Score (Numeric/FACES): 6 - Related Data Allergies Allergy/AdvReac Type Severity Reaction Status Date / Time azithromycin Allergy Hives Verified 09/30/20 19:13 divalproex sodium Allergy Hives Verified 09/30/20 19:13 [From Depakote] methocarbamol [From Robaxin] Allergy Fainting Verified 09/30/20 19:13 Home Meds: Home Meds DULoxetine [Cymbalta] 20 mg PO DAILY 09/06/20 [History] Diclofenac Submicronized [Diclofenac] 35 mg PO DAILY 09/06/20 [History] Naltrexone 50 mg PO ASDIRECTED 09/06/20 [History] Pregabalin [Lyrica] 25 mg PO DAILY 09/06/20 [History] Past Medical History - Past Health History Medical/Surgical History: Denies Medical/Surgical History Musculoskeletal History: Reports: Back Pain, Chronic Psychiatric History: Reports: Anxiety, PTSD - Infectious Disease History Infectious Disease History: Reports: Chicken Pox, Measles - Past Surgical History Musculoskeletal Surgical History: Reports: Other (See Below) Other Musculoskeletal Surgeries/Procedures:: back surgery Social & Family History - Family History Family Medical History: No Pertinent Family History - Tobacco Use Tobacco Use Status *Q: Current Every Day Tobacco User Years of Tobacco use: 20 Packs/Tins Daily: 0.1 - Caffeine Use Caffeine Use: Reports: None - Recreational Drug Use Recreational Drug Use: No Review of Systems - Review of Systems Review Of Systems: See Below Constitutional: Reports: No Symptoms Eyes: Reports: No Symptoms Ears: Reports: No Symptoms Nose: Reports: No Symptoms Mouth/Throat: Reports: No Symptoms Respiratory: Reports: No Symptoms Cardiovascular: Reports: No Symptoms GI/Abdominal: Reports: No Symptoms Genitourinary: Reports: No Symptoms Musculoskeletal: Reports: No Symptoms Skin: Reports: Wound Neurological: Reports: No Symptoms Psychiatric: Reports: No Symptoms ED EXAM, GENERAL - Physical Exam Exam: See Below Exam Limited By: No Limitations General Appearance: Alert, WD/WN, No Apparent Distress Respiratory/Chest: No Respiratory Distress, Lungs Clear, Normal Breath Sounds Cardiovascular: Normal Peripheral Pulses, Regular Rate, Rhythm Peripheral Pulses: 2+: Radial (L), Radial (R) GI/Abdominal: Normal Bowel Sounds, Soft, Non-Tender Extremities: Normal Range of Motion, Non-Tender Skin Exam: Erythema (not warm or tender to touch ) Course - Vital Signs Last Recorded V/S: Last Vital Signs Temp 98 F 09/30/20 19:14 Pulse 78 09/30/20 19:14 Resp 16 09/30/20 19:14 BP 119/66 09/30/20 19:14 Pulse Ox 100 09/30/20 19:14 - Orders/Labs/Meds Orders: Active Orders 24 hr Category Date Time Status CULTURE WOUND [RM] Stat Lab 09/30/20 19:26 Ordered Labs: Laboratory Tests 09/30/20 09/30/20 Range/Units 19:34 19:34 WBC 6.59 (4.0-11.0) K/uL RBC 4.54 (4.30-5.90) M/uL Hgb 12.6 (12.0-16.0) g/dL Hct 39.3 (36.0-46.0) % MCV 86.6 (80.0-98.0) fL MCH 27.8 (27.0-32.0) pg MCHC 32.1 (31.0-37.0) g/dL RDW Std Deviation 49.6 (28.0-62.0) fl RDW Coeff of Alexus 16 H (11.0-15.0) % Plt Count 208 (150-400) K/uL MPV 11.20 (7.40-12.00) fL Neut % (Auto) 62.9 (48.0-80.0) % Lymph % (Auto) 26.1 (16.0-40.0) % [place] % (Auto) 9.9 (0.0-15.0) % Eos % (Auto) 0.8 (0.0-7.0) % Baso % (Auto) 0.3 (0.0-1.5) % Neut # (Auto) 4.2 (1.4-5.7) K/uL Lymph # (Auto) 1.7 (0.6-2.4) K/uL [place] # (Auto) 0.7 (0.0-0.8) K/uL Eos # (Auto) 0.1 (0.0-0.7) K/uL Baso # (Auto) 0.0 (0.0-0.1) K/uL Nucleated RBC % 0.0 /100WBC Nucleated RBCs # 0 K/uL Sodium 141 (136-145) mmol/L Potassium 3.6 (3.5-5.1) mmol/L Chloride 106 (98-107) mmol/L Carbon Dioxide 27.4 (21.0-32.0) mmol/L BUN 11 (7.0-18.0) mg/dL Creatinine 0.9 (0.6-1.0) mg/dL Est Cr Clr Drug Dosing 85.99 mL/min Estimated GFR (MDRD) > 60.0 ml/min Glucose 107 H (74-106) mg/dL Calcium 8.4 L (8.5-10.1) mg/dL - Re-Assessments/Exams Free Text/Narrative Re-Assessment/Exam: 09/30/20 20:54 Patient was able does not look worse than previous. She showed me on her phone. Patient is a white count x-rays not show any free soft tissue gas. Patient will be sent home to follow-up with vascular for work-up as to why her wound is not healing. Departure - Departure Time of Disposition: 20:54 Disposition: Home, Self-Care 01 Condition: Good Clinical Impression: Non-healing wound of lower extremity - Discharge Information *PRESCRIPTION DRUG MONITORING PROGRAM REVIEWED*: Not Applicable *COPY OF PRESCRIPTION DRUG MONITORING REPORT IN PATIENT RENU: Not Applicable Instructions: [facility] Referrals: Mich Corley MD [Primary Care Provider] - Forms: ED Department Discharge Additional Instructions: The following information is given to patients seen in the emergency department who are being discharged to home. This information is to outline your options for follow-up care. We provide all patients seen in our emergency department with a follow-up referral. The need for follow-up, as well as the timing and circumstances, are variable depending upon the specifics of your emergency department visit. If you don't have a primary care physician on staff, we will provide you with a referral. We always advise you to contact your personal physician following an emergency department visit to inform them of the circumstance of the visit and for follow-up with them and/or the need for any referrals to a consulting specialist. The emergency department will also refer you to a specialist when appropriate. This referral assures that you have the opportunity for follow-up care with a specialist. All of these measure are taken in an effort to provide you with optimal care, which includes your follow-up. Under all circumstances we always encourage you to contact your private physician who remains a resource for coordinating your care. When calling for follow-up care, please make the office aware that this follow-up is from your recent emergency room visit. If for any reason you are refused follow-up, please contact the [facility] Emergency Department at and asked to speak to the emergency department charge nurse. Please follow up with your primary care physician. If you do not have a primary care physician, see below: [facility] [address] [place] [id number] My [facility] [address] [place] [id number] You were seen today for a wound to your right dominguez that has not healed for the past month. There is not look worse than previous pictures and you have already been on antibiotics twice. You have no fever here no elevated white count on labs we also did x-rays. We are unsure why this wound is not healing but we would like you to follow-up with your primary care physician who may refer you to a vascular surgeon or a wound clinic for further care. You have any increased fever chills other complaints please return to the ED. Sepsis Event Note (ED) - Evaluation Sepsis Screening Result: No Definite Risk - Focused Exam Vital Signs: Vital Signs Temp Pulse Resp BP Pulse Ox 09/30/20 19:14 98 F 78 16 119/66 100 - My Orders Last 24 Hours: My Active Orders 09/30/20 19:26 CULTURE WOUND [RM] Stat - Assessment/Plan Last 24 Hours: My Active Orders 09/30/20 19:26 CULTURE WOUND [RM] Stat Plan: Patient 45-year-old female who presents today for wound to her right hip that is not healed in the past month. The area is red but not warm to touch not look infected. Although a month out was not healed that she should be so patient likely to see wound care for causes of nonhealing wound.
[2020-09-30 20:22] LABS: BLOOD UREA NITROGEN,BUN 11 mg/dL (7.0-18.0); CARBON DIOXIDE,CO2 27.4 mmol/L (21.0-32.0); CHLORIDE,CL 106 mmol/L (98-107); GLUCOSE RANDOM 107 mg/dL (74-106); POTASSIUM,K 3.6 mmol/L (3.5-5.1); SODIUM,NA 141 mmol/L (136-145)
--- NOTE | 2020-09-30 20:49 | CR ---
Indication: Nonhealing wound on tibia Technique: Two views of the right tibia and fibula. Findings: Normal alignment. No acute fractures no acute osseous abnormalities. No soft tissue gas. Dictated by Alysia Sol MD @ 09/30/2020 8:47:[address] Alysia Sol @ Sep 30 2020 8:47PM
== END 2020-09-30 21:18 | disposition home or self-care (01) ==
LOC: MW.ED 17:44
DX: S81.801A Unspecified open wound, right lower leg, initial encounter (principal); Z88.1 Allergy status to other antibiotic agents; Z88.8 Allergy status to other drugs, medicaments and biological substances; Z79.899 Other long term (current) drug therapy; Z72.0 Tobacco use; X58.XXXA Exposure to other specified factors, initial encounter
CPT/HCPCS: 36415; 73590-26-RT; 73590-RT; 80048; 85025; 99282; 99283-25